=== PATIENT | male | born 1950 | race African-American/Black ===

== ENCOUNTER 2018-06-03 06:05 | Day surgery (SDC) | payer MEDICARE, OTHER ==
--- NOTE | 2018-05-31 13:28 | Pre-Procedure Note/Attestation ---
Pre-Procedure Note/Attestation Complete Prior to Procedure Planned Procedure: left Procedure Narrative: Cataract extraction With Intraocular Lens Implant Left Eye Indications for Procedure Pre-Operative Diagnosis: Cataract Left Eye Attestation I attest that I discussed the nature of the procedure; its benefits; risks and complications; and alternatives (and the risks and benefits of such alternatives ), prior to the procedure, with the patient (or the patient's legal sales representative cash registers). I attest that, if there was a reasonable possibility of needing a blood transfusion, the patient (or the patient's legal sales representative cash registers) was given the [facility] standardized written summary, pursuant to the Cosme Paty Blood Safety Act ([place] Health and Safety Code # 1645, as amended). I attest that I re-evaluated the patient just prior to the surgery and that there has been no change in the patient's H&P, except as documented below: Norberto Milner MD May 31, 2018 13:27
--- NOTE | 2018-05-31 13:31 | Opthalmology H&P ---
Ophthalmology H&P H&P Chief Complaint: decreased vision in left eye HPI Vision Affects Ability to: read, focus/use eyes together, manage personal affairs Exam Visual Acuity: OD 20/50 OS Counting Fingers Tension: OD 17 OS 15 Eye Exam: normal OU: external exam, palpebral fissure-width, marginal reflex distance, levator function, corneas, anterior chambers; findings: lens - +4 PSC Cataract OS, fundus exam - POOR VIEW Assessment/Plan Treatment Plan: cataract extraction w/ lens implant Goals of Treatment: improvement of vision, enhance quality of life Attestation Attestation The risks and benefits of the surgery as well as alternative procedures were explained to the patient in detail. Norberto Milner MD May 31, 2018 13:31
[~2018-06-03] VITALS: Ht 175.3 cm; Wt 110.2 kg
[2018-06-03] VITALS (10 sets, daily range): BP systolic 121–149; BP diastolic 74–95
[~2018-06-03 06:05] MED LIST: HYDROCHLOROTHIA25 MG ORAL; LANTUS SOL100 UNIT/1 SUBQ; LEVOTHYROXINE125 MCG ORAL; LISINOPRIL5 MG ORAL
[2018-06-03] MEDS ORDERED: Maxitrol Opth Oint 3.5gm ONE (07:00)
[2018-06-03] MEDS ORDERED: Pilocarpine 1% Opth 15ml Soln ONE (07:00)
[2018-06-03] MEDS ORDERED: Proparacaine 0.5% Opth Soln 15ml LEFT EYE ONE (07:00)
[2018-06-03] MEDS ORDERED: Pred Forte 1% Opth Susp 1ml ONE (07:00)
[2018-06-03] MEDS ORDERED: Dexamethasone 4mg/ml vial ONE (07:00)
[2018-06-03] MEDS ORDERED: Akten 3.5% 1ml Btl LEFT EYE ONE (07:00)
[2018-06-03] MEDS ORDERED: Tetracaine 0.5% Opth 4ml Soln LEFT EYE ONE (07:00)
[2018-06-03] MEDS: Tropicamide 1% Opth 15ml Soln LEFT EYE SCH ×3 (07:45→08:11)
[2018-06-03] MEDS: Diclofenac Sod 0.1% Op Soln LEFT EYE SCH ×3 (07:45→08:12)
[2018-06-03] MEDS: Tobramycin Op Soln 0.3% 5ml LEFT EYE SCH ×3 (07:46→08:12)
[2018-06-03] MEDS: Cyclopentolate 1% Opth Sol 2ml LEFT EYE SCH ×3 (07:46→08:12)
[2018-06-03] MEDS: Phenylephrine 10% Opth Soln 5ml LEFT EYE SCH ×3 (07:46→08:12)
[2018-06-03] MEDS ORDERED: BSS 15ml BTL ONE ×2 (08:32→08:40)
[2018-06-03] MEDS ORDERED: EPINEPHrine 1mg/1ml Amp ONE (08:32)
[2018-06-03] MEDS ORDERED: BSS 500ml btl ONE (08:32)
[2018-06-03] MEDS ORDERED: Sodium Hyaluronate 14 mg/ml 0.85ml ONE (08:33)
[2018-06-03] MEDS ORDERED: Povidone-Iodine 5% opth solution ONE (08:33)
[2018-06-03] MEDS ORDERED: Midazolam 2mg/2ml Inj ONE (08:37)
[2018-06-03] MEDS ORDERED: fentaNYL 100 mcg/2 mL IV ONE ×2 (08:37→09:13)
--- NOTE | 2018-06-03 08:42 | Anethesia Preoperative Eval ---
Anesthesia Pre-op PMH/ROS General Date of Evaluation: Jun 03, 2018 Time of Evaluation: 08:40 Anesthesiologist: pranav ASA Score: ASA 3 Mallampati Score Class I : Soft palate, uvula, fauces, pillars visible Class II: Soft palate, uvula, fauces visible Class III: Soft palate, base of uvula visible Class IV: Only hard plate visible Mallampati Classification: Class III Surgeon: lucia Diagnosis: cataract Surgical Procedure: left eye Anesthesia History: none Social History: smoking Family History: no anesthesia problems Allergies: Coded Allergies: No Known Allergies (Unverified , 05/30/18) Medications: see eMAR Patient NPO?: Yes NPO Date: Jun 03, 2018 NPO Time: 00:01 Past Medical History Cardiovascular: Reports: HTN, CAD Pulmonary: Reports: other; Denies: asthma, COPD, KERI Gastrointestinal/Genitourinary: Denies: GERD, CRI, ESRD, other Neurologic/Psychiatric: Denies: dementia, CVA, depression/anxiety, TIA, other Endocrine: Reports: DM, hypothyroidism HEENT: Reports: cataract (L); Denies: cataract (R), glaucoma, [place] (L), [place] (R), other Hematology/Immune: Denies: anemia, DVT, bleeding disorder, other PSxH Narrative: stomach surgery? Anesthesia Pre-op Phys. Exam Physician Exam Last Vital Signs Date Time Temp Pulse Resp B/P (MAP) Pulse Ox O2 Delivery O2 Flow Rate FiO2 06/03/18 07:56 97.0 56 18 133/77 99 Room Air Constitutional: NAD Neurologic: CN 2-12 intact Cardiovascular: RRR Respiratory: CTA Gastrointestinal: S/NT/ND Airway Exam Mallampati Classification 3 Mallampati Score: Class III MO: full ROM: full Dentures: no upper, no lower Anesthesia Pre-op A/P Studies Pre-op Studies: EKG - sr Risk Assessment & Plan Plan: mac Pre-Antibiotics Drug: none Jyoti Boyce CRNA Jun 03, 2018 08:42
[2018-06-03] MEDS ORDERED: fentaNYL 100 mcg/2 mL IV PRN (08:45)
[2018-06-03] MEDS ORDERED: LR 1000ml ONE (09:00)
[2018-06-03] MEDS ORDERED: Sterile Water Irrig 1000ml IRRIG ONE (09:00)
[2018-06-03] MEDS ORDERED: NS Irrig 1000ml ONE (09:00)
--- NOTE | 2018-06-03 11:50 | Immediate Post-Op Evaluation ---
Immediate Post-Op Evalulation Immediate Post-Op Evalulation Procedure: cataract extraction left eye Date of Evaluation: Jun 03, 2018 Time of Evaluation: 09:30 IV Fluids: 500 Blood Pressure Systolic: 141 Blood Pressure Diastolic: 74 Pulse Rate: 70 Respiratory Rate: 14 O2 Sat by Pulse Oximetry: 98 Temperature (Fahrenheit): 97.8 Pain Score (1-10): 0 Nausea: No Vomiting: No Complications none Patient Status: awake, reacts, patent Hydration Status: adequate Drug: none Jyoti Boyce CRNA Jun 03, 2018 11:50
--- NOTE | 2018-06-03 11:51 | 48 Hour Post Anesthesia Eval ---
Post Anesthesia Evaluation Procedure: cataract extraction left eye Date of Evaluation: Jun 03, 2018 Time of Evaluation: 11:51 Blood Pressure Systolic: 148 0: 74 Pulse Rate: 71 Respiratory Rate: 14 O2 Sat by Pulse Oximetry: 96 Airway: patent Nausea: No Vomiting: No Hydration Status: adequate Cardiopulmonary Status: stable Mental Status/LOC: patient returned to baseline Post-Anesthesia Complications: none Follow-up care needed: N/A Jyoti Boyce CRNA Jun 03, 2018 11:51
--- NOTE | 2018-06-05 10:12 | Brief Operative Note ---
Immediate Post Operative Note Operative Note Chief Complaint: blurry vision, OD Pre-op Diagnosis: Cataract Left Eye Procedure: phaco with IOL, OS Post-op Diagnosis: Pseudophakia Post-op Diagnosis: same as pre-op Findings: consistent w/pre-op dx studies Surgeon: Annia Anesthesiologist: Prince Anesthesia: MAC Specimen: none Complications: none Condition: stable Fluids: LR Estimated Blood Loss: none Drains: none Implant(s) used?: Yes Norberto Milner MD Jun 05, 2018 10:12
--- NOTE | 2018-06-05 10:13 | Operative Note - PDOC ---
Operative Note Operative Note Date of Operation/Procedure: Jun 03, 2018 Chief Complaint: blurry vision, OD Pre-op Diagnosis: Cataract Left Eye Procedure: phaco with IOL, OS Post-op Diagnosis: Pseudophakia Post-op Diagnosis: same as pre-op Operative Findings: consistent w/pre-op dx studies Surgeon: Annia Anesthesiologist: Prince Anesthesia: MAC Specimen: none Complications: none Condition: stable Fluids: LR Estimated Blood Loss: none Drains: none Implant(s) used?: Yes Indications for Procedure cataract Description of Procedure This patient has been complaining visually significant cataract in the affected eye with the best corrected visual acuity under moderate glare conditions worse. The patient complains of difficulties with glare in performing activities of daily living and wants to manage personal affairs with comfort and accuracy and see well enough to move with safety at home and outdoors. The risks, benefits and alternatives of the procedure were discussed with the patient in the office prior to scheduling surgery. All questions from the patient were answered after the surgical procedure was explained in detail. The risks of the procedure as explained to the patient include, but are not limited to, pain, infection, bleeding, loss of vision, retinal detachment, need for further surgery, loss of lens nucleus, double vision, etc. Alternative procedures were discussed which include, to do nothing or seek a second opinion. Informed consent for this procedure was obtained from the patient. The patient was referred to a primary care physician for a cardiopulmonary clearance prior to surgery, after proper evaluation was done patient was properly scheduled for outpatient surgery. The patient was brought to the operating room where the anesthesiologist established I.V. lines and cardiac monitoring leads. Mild intravenous sedation was administered. The patient was then prepared with a 5% solution of povidone -iodine to the conjunctival fornix and lashes, and a 5% solution of povidone- iodine to the lids and periorbital skin. The patient was then draped in the usual sterile fashion. A lid speculum was then placed in the operative eye. A keratome blade was then used to create a biplanar incision into the anterior chamber. Viscoelastics was then instilled into the anterior chamber. A capsulorrhexis was then fashioned with an utrata forceps followed by hydrodissection and hydro delineation of the lens nucleus. Paracentesis incision was made at 3 o'clock with sharp blade. The phacoemulsification unit, after being properly adjusted and tested, was then used to emulsify the nucleus followed by aspiration and irrigation of residual cortical material. Healon was then instilled into the anterior chamber. The corneal wound was then enlarged to the size of the optic with the ifeoma keratome blade. The intraocular lens was then inspected for right power and size and thought to be satisfactory. Then the lens was gently placed in the capsular bag. Positioning within the capsular bag was confirmed by direct visualization. Optic centration was accomplished with a Sins[place] hook. Viscoelastics was removed from the anterior chamber using the irrigation and aspiration unit. The corneal wound was then tested for leaks and none were found. The lid speculum were then removed. Sponge and needle counts were correct. An eye patch and shield were placed over the operative eye. The patient was taken to the recovery room in stable condition. There were no complications. The patient tolerated the procedure well. The patient was then transferred to the ambulatory surgery unit in stable and satisfactory condition , was given detailed written instructions and asked to follow up in the office the next day. Norberto Milner MD Jun 05, 2018 10:13
== END 2018-06-03 10:20 | disposition home or self-care (01) ==
LOC: SUR 06:05
DX: H25.12 Age-related nuclear cataract, left eye (principal); E11.9 Type 2 diabetes mellitus without complications; Z79.4 Long term (current) use of insulin; E66.9 Obesity, unspecified; Z68.35 Body mass index [BMI] 35.0-35.9, adult; F17.200 Nicotine dependence, unspecified, uncomplicated; E03.9 Hypothyroidism, unspecified; I10 Essential (primary) hypertension; Z86.19 Personal history of other infectious and parasitic diseases
CPT/HCPCS: 66984; 82962; J0171; J1100; J2250; J3010; J3370; V2632; 94003; 94150